=== PATIENT | female | born 1975 | race African-American/Black ===

== ENCOUNTER 2019-01-20 19:37 | Inpatient (IN) | payer MEDICAID, OTHER ==
[~2019-01-20] VITALS: Ht 157.5 cm; Wt 59.9 kg
[~2019-01-20 19:37] MED LIST: BENAZEPRIL PO; HUMALOG INSULIN; LABE200T28 PO; NIFE20CA PO; RENAGEL PO; [UNRECOGNIZED DRUG - OTHER] SUBCUT
[2019-01-20] MEDS ORDERED: SODIUM CHLORIDE 0.9% 1,000 ML IV ONE (21:00)
[2019-01-20 21:22] LABS: BASOPHILS % 1.3 % (0.0-2.0); EOSINOPHILS % 0.9 % (0.0-5.0); HEMATOCRIT. 36.4 % (36.0-48.0); HEMOGLOBIN. 11.7 g/dL (12.0-16.0); LYMPHOCYTES % 7.5 % (20.0-50.0); MEAN CORPUSCULAR HEMOGLOBIN 27.9 pg (28.0-32.0); MEAN CORPUSCULAR VOLUME 86.7 fL (81.0-99.0); MEAN PLATELET VOLUME 8.6 fl (7.4-10.4); MONOCYTES % 5.8 % (2.0-8.0); NEUTROPHILS % 84.5 % (40.0-76.0); PLATELET 354 x1000/uL (130-400); RED CELL DISTRIBUTION WIDTH 14.1 % (11.6-14.6)
[2019-01-20 21:29] LABS: CHLORIDE 103 mEq/L (98-107)
[2019-01-20] MEDS ORDERED: MORPHINE SULFATE 4 MG/ML CPJ (NOT FOR IM USE) IV ONE (23:30)
[2019-01-20] MEDS ORDERED: CLINDAMYCIN 600 MG in DEXTROSE 5% WATER 50 ML IV ONE (23:30)
[2019-01-20] MEDS ORDERED: CLINDAMYCIN 600MG PREMIX 50 ML IV SCH (23:45)
[2019-01-21] MEDS ORDERED: INSULIN LISPRO 100 UNITS/ML SUBCUT ONE (07:45)
[2019-01-21 12:00] VITALS: BP 148/70
[2019-01-21 12:30] VITALS: BP 148/70
[2019-01-21] MEDS ORDERED: ONDANSETRON HCL 4MG/2ML INJ IV PRN (13:30)
[2019-01-21] MEDS ORDERED: CLONIDINE 0.1MG TABLET PO PRN (13:30)
[2019-01-21] MEDS ORDERED: HYDROCODONE/ACETAMINOPHEN 5/325MG TABLET PO PRN (13:30)
[2019-01-21] MEDS ORDERED: DEXTROSE 50% WATER 50ML SYRINGE IV PRN (13:30)
[2019-01-21] MEDS ORDERED: ACETAMINOPHEN 325MG TABLET PO PRN (13:30)
[2019-01-21] MEDS ORDERED: SULF1TAB48 PO (14:04)
[2019-01-21] MEDS ORDERED: ERGO500013 MT (14:04)
[2019-01-21] MEDS ORDERED: TACR1CAP22 PO (14:04)
[2019-01-21] MEDS ORDERED: MULT-1146 MT (14:04)
[2019-01-21] MEDS ORDERED: ASPI-1393 MT (14:04)
[2019-01-21] MEDS ORDERED: PRED5TAB MT (14:04)
[2019-01-21] MEDS ORDERED: OMEP20CA5 MT (14:04)
[2019-01-21] MEDS ORDERED: CALC300T4 PO (14:04)
[2019-01-21] MEDS ORDERED: LANTUSUD SUBCUT (14:04)
[2019-01-21] MEDS ORDERED: DOCU-138 MT (14:04)
[2019-01-21] MEDS ORDERED: VALC450 MT (14:04)
[2019-01-21] MEDS ORDERED: MAGN400T26 MT (14:04)
[2019-01-21] MEDS: ENOXAPARIN 40MG/0.4ML SYR SUBCUT SCH (14:57)
[2019-01-21] MEDS ORDERED: CLINDAMYCIN 600 MG in DEXTROSE 5% WATER 50 ML IV SCH (15:00)
[2019-01-21 16:00] VITALS: BP 152/49
[2019-01-21] MEDS: MORPHINE SULFATE 2 MG/ML CPJ (NOT FOR IM USE) IV PRN ×2 (16:09→21:08)
[2019-01-21] MEDS: CLINDAMYCIN 600MG PREMIX 50 ML IV SCH ×2 (16:20→23:13)
[2019-01-21] MEDS ORDERED: NIFEDIPINE XL 30MG TAB PO SCH (16:30)
[2019-01-21] MEDS ORDERED: TACROLIMUS 1MG CAPSULE PO SCH (17:00)
[2019-01-21] MEDS: BLOOD SUGAR DIAGNOSTIC STRIP TEST SCH ×2 (17:20→20:42)
[2019-01-21 18:06] LABS: CLARITY URINE CLEAR (CLEAR); COLOR URINE YELLOW (YELLOW); KETONES URINE TRACE (NEGATIVE); LEUKOCYTE ESTERASE URINE NEGATIVE (NEGATIVE); NITRITE URINE NEGATIVE (NEGATIVE); OCCULT BLOOD URINE NEGATIVE (NEGATIVE); PROTEIN URINE NEGATIVE (NEGATIVE); SPECIFIC GRAVITY URINE 1.015 (1.005-1.030); UROBILINOGEN URINE 0.2 E.U./dL (0.2-1.0)
[2019-01-21 18:19] LABS: *AMPHETAMINES SCREEN URINE NEGATIVE (NEGATIVE); *BARBITURATES SCREEN URINE NEGATIVE (NEGATIVE)
[2019-01-21 18:20] LABS: *BENZODIAZEPINES SCREEN URINE NEGATIVE (NEGATIVE); *COCAINE SCREEN URINE NEGATIVE (NEGATIVE); CANNABINOID URINE SCREEN NEGATIVE (NEGATIVE); METHADONE URINE SCREEN NEGATIVE (NEGATIVE); PHENCYCLIDINE URINE SCREEN NEGATIVE (NEGATIVE)
[2019-01-21 18:27] LABS: OPIATES URINE SCREEN PRESUMTIVE POSITIVE (NEGATIVE)
[2019-01-21] MEDS: MAGNESIUM OXIDE 400MG TABLET PO SCH (18:52)
[2019-01-21] MEDS: TACROLIMUS 5MG CAPSULE PO SCH (18:52)
[2019-01-21] MEDS: DOCUSATE SODIUM 100MG CAPSULE PO SCH (18:52)
[2019-01-21] MEDS: INSULIN LISPRO 100 UNITS/ML SUBCUT SCH ×2 (19:02→21:15)
[2019-01-21 20:00] VITALS: BP 152/44
[2019-01-22] VITALS: BP 156/63
[2019-01-22] MEDS: MORPHINE SULFATE 2 MG/ML CPJ (NOT FOR IM USE) IV PRN ×3 (03:01→22:17)
[2019-01-22 04:00] VITALS: BP 178/54
[2019-01-22] MEDS: CLINDAMYCIN 600MG PREMIX 50 ML IV SCH (06:13)
[2019-01-22] MEDS: OMEPRAZOLE 20MG CAPSULE EXTENDED RELEASE PO SCH (06:14)
[2019-01-22] MEDS: BLOOD SUGAR DIAGNOSTIC STRIP TEST SCH ×4 (06:25→20:44)
[2019-01-22 07:36] LABS: BASOPHILS % 0.8 % (0.0-2.0); EOSINOPHILS % 2.2 % (0.0-5.0); HEMOGLOBIN. 10.7 g/dL (12.0-16.0); LYMPHOCYTES % 13.1 % (20.0-50.0); MEAN CORPUSCULAR HEMOGLOBIN 27.2 pg (28.0-32.0); MEAN CORPUSCULAR VOLUME 86.1 fL (81.0-99.0); MEAN PLATELET VOLUME 8.9 fl (7.4-10.4); MONOCYTES % 7.2 % (2.0-8.0); NEUTROPHILS % 76.7 % (40.0-76.0); PLATELET 288 x1000/uL (130-400); RED BLOOD CELL COUNT 3.95 mill/uL (4.2-5.4); RED CELL DISTRIBUTION WIDTH 14.1 % (11.6-14.6)
[2019-01-22 07:41] LABS: CHLORIDE 103 mEq/L (98-107)
[2019-01-22 08:00] VITALS: BP 154/46
[2019-01-22] MEDS: INSULIN LISPRO 100 UNITS/ML SUBCUT SCH ×6 (08:18→20:44)
[2019-01-22] MEDS ORDERED: SODIUM POLYSTYRENE SULFONATE 15 G/60 ML BOT PO NR (08:30)
[2019-01-22] MEDS ORDERED: ERGOCALCIFEROL 50000UNITS CAPSULE PO SCH (09:00)
[2019-01-22] MEDS: ASPIRIN 81MG TABLET PO SCH (09:47)
[2019-01-22] MEDS: NIFEDIPINE XL 30MG TAB PO SCH (09:47)
[2019-01-22] MEDS: TACROLIMUS 5MG CAPSULE PO SCH ×2 (09:48→16:42)
[2019-01-22] MEDS: MULTIVITAMINS,THER W-MINERALS TABLET PO SCH (09:49)
[2019-01-22] MEDS: MAGNESIUM OXIDE 400MG TABLET PO SCH ×2 (09:49→16:42)
[2019-01-22] MEDS: PREDNISONE 5MG TABLET PO SCH (09:49)
[2019-01-22] MEDS: CALCIUM CARBONATE 500MG TABLET CHEW PO SCH ×2 (09:49→16:43)
[2019-01-22] MEDS: DOCUSATE SODIUM 100MG CAPSULE PO SCH ×2 (09:49→16:42)
[2019-01-22] MEDS: ENOXAPARIN 40MG/0.4ML SYR SUBCUT SCH (09:50)
[2019-01-22] MEDS: VALGANCICLOVIR HYDROCHLORIDE 450MG TABLET PO SCH (09:50)
[2019-01-22] MEDS: INSULIN GLARGINE UD 100 UNITS/ML SYR SUBCUT SCH ×2 (11:00→22:07)
[2019-01-22 12:00] VITALS: BP 128/37
[2019-01-22] MEDS: LEVOFLOXACIN 750MG PREMIX 150 ML IV SCH (13:03)
[2019-01-22] MEDS ORDERED: VANCOMYCIN 1250MG in DEXTROSE 5% WATER 250ML IV SCH (14:00)
[2019-01-22 16:00] VITALS: BP 112/50
[2019-01-22] MEDS: VANCOMYCIN 750 MG PREMIX 150 ML IV SCH (22:26)
[2019-01-23] VITALS: BP 119/30
[2019-01-23] MEDS ORDERED: VANCOMYCIN 750 MG PREMIX 150 ML IV SCH (02:00)
[2019-01-23 04:00] VITALS: BP 123/46
[2019-01-23] MEDS: OMEPRAZOLE 20MG CAPSULE EXTENDED RELEASE PO SCH (06:26)
[2019-01-23] MEDS: BLOOD SUGAR DIAGNOSTIC STRIP TEST SCH ×2 (06:26→11:16)
[2019-01-23] MEDS: INSULIN LISPRO 100 UNITS/ML SUBCUT SCH ×5 (06:31→12:12)
[2019-01-23 06:32] LABS: BASOPHILS % 0.8 % (0.0-2.0); EOSINOPHILS % 2.3 % (0.0-5.0); HEMATOCRIT. 32.8 % (36.0-48.0); HEMOGLOBIN. 10.8 g/dL (12.0-16.0); LYMPHOCYTES % 13.4 % (20.0-50.0); MEAN CORPUSCULAR HEMOGLOBIN 28.1 pg (28.0-32.0); MEAN CORPUSCULAR VOLUME 84.9 fL (81.0-99.0); MEAN PLATELET VOLUME 8.6 fl (7.4-10.4); MONOCYTES % 6.5 % (2.0-8.0); PLATELET 309 x1000/uL (130-400); RED BLOOD CELL COUNT 3.87 mill/uL (4.2-5.4); RED CELL DISTRIBUTION WIDTH 13.8 % (11.6-14.6)
[2019-01-23 06:35] LABS: CHLORIDE 104 mEq/L (98-107)
[2019-01-23 08:00] VITALS: BP 148/46
[2019-01-23] MEDS: DOCUSATE SODIUM 100MG CAPSULE PO SCH (08:07)
[2019-01-23] MEDS: ASPIRIN 81MG TABLET PO SCH (08:07)
[2019-01-23] MEDS: VANCOMYCIN 750 MG PREMIX 150 ML IV SCH (08:07)
[2019-01-23] MEDS: MULTIVITAMINS,THER W-MINERALS TABLET PO SCH (08:07)
[2019-01-23] MEDS: MAGNESIUM OXIDE 400MG TABLET PO SCH (08:08)
[2019-01-23] MEDS: CALCIUM CARBONATE 500MG TABLET CHEW PO SCH (08:08)
[2019-01-23] MEDS: TACROLIMUS 5MG CAPSULE PO SCH (08:08)
[2019-01-23] MEDS: NIFEDIPINE XL 30MG TAB PO SCH (08:08)
[2019-01-23] MEDS: PREDNISONE 5MG TABLET PO SCH (08:08)
[2019-01-23] MEDS: ENOXAPARIN 40MG/0.4ML SYR SUBCUT SCH (08:08)
[2019-01-23] MEDS: INSULIN GLARGINE UD 100 UNITS/ML SYR SUBCUT SCH (09:40)
[2019-01-23] MEDS: VALGANCICLOVIR HYDROCHLORIDE 450MG TABLET PO SCH (10:33)
[2019-01-23] MEDS: LEVOFLOXACIN 750MG PREMIX 150 ML IV SCH (11:16)
[2019-01-23 12:00] VITALS: BP 122/42
[2019-01-23 13:14] VITALS: BP 122/42
[2019-01-24] MEDS ORDERED: FAMOTIDINE 20MG TABLET PO SCH (09:00)
[2019-01-24] MEDS ORDERED: LEVOFLOXACIN 250MG TABLET PO SCH (11:00)
== END 2019-01-23 16:39 | disposition home or self-care (01) | DRG 197 ==
LOC: ER 19:37 → EDBEDREQTM 23:27 → EDBEDREQSVC 23:27 → EDBEDREQ 23:27 → ENRESERV 01-21 10:48 → 6EST 01-21 12:29
PROVIDERS: ADMIT Internal Medicine; ATTEND Internal Medicine
DX: E10.52 Type 1 diabetes mellitus with diabetic peripheral angiopathy with gangrene (principal); E10.22 Type 1 diabetes mellitus with diabetic chronic kidney disease; E10.621 Type 1 diabetes mellitus with foot ulcer; M86.8X7 Other osteomyelitis, ankle and foot; E44.1 Mild protein-calorie malnutrition; L08.9 Local infection of the skin and subcutaneous tissue, unspecified; L97.509 Non-pressure chronic ulcer of other part of unspecified foot with unspecified severity; E10.65 Type 1 diabetes mellitus with hyperglycemia; E10.69 Type 1 diabetes mellitus with other specified complication; N18.6 End stage renal disease; I12.0 Hypertensive chronic kidney disease with stage 5 chronic kidney disease or end stage renal disease; S90.411A Abrasion, right great toe, initial encounter; W18.39XA Other fall on same level, initial encounter; Z79.4 Long term (current) use of insulin; Z88.0 Allergy status to penicillin; Z79.82 Long term (current) use of aspirin; Z94.0 Kidney transplant status; Z79.899 Other long term (current) drug therapy; Z68.24 Body mass index [BMI] 24.0-24.9, adult; Y93.89 Activity, other specified; Y92.89 Other specified places as the place of occurrence of the external cause; Y99.8 Other external cause status
CPT/HCPCS: 36415; 71045; 73630; 73718; 80048; 80305; 81003; 82962; 83036; 83880; 84132; 84484; 93005; 93306; 93923; 96374; 99285; J1650; J1815; J1956; J2270; J3370; J3490; J7030; J7060; J7507; J7512

== ENCOUNTER 2019-02-02 14:37 | Inpatient (IN) | payer MEDICAID, OTHER ==
[~2019-02-02] VITALS: Ht 157.5 cm; Wt 57.3 kg
[~2019-02-02 14:37] MED LIST changes: +ASPI-1393 MT; +CALC300T4 PO; +DOCU-138 MT; +ERGO500013 MT; +LANTUSUD SUBCUT; +MAGN400T26 MT; +MULT-1146 MT; +OMEP20CA5 MT; +PRED5TAB MT; +SULF1TAB48 PO; +TACR1CAP22 PO; +VALC450 MT
[2019-02-02] MEDS ORDERED: ONDANSETRON HCL 4MG/2ML INJ IV STA (15:33)
[2019-02-02] MEDS ORDERED: SODIUM CHLORIDE 0.9% 1,000 ML IV ONE (15:33)
[2019-02-02 16:11] LABS: BASOPHILS % 1.1 % (0.0-2.0); EOSINOPHILS % 1.1 % (0.0-5.0); HEMATOCRIT. 35.1 % (36.0-48.0); HEMOGLOBIN. 11.5 g/dL (12.0-16.0); LYMPHOCYTES % 9.9 % (20.0-50.0); MEAN CORPUSCULAR HEMOGLOBIN 27.6 pg (28.0-32.0); MEAN CORPUSCULAR VOLUME 84.2 fL (81.0-99.0); MEAN PLATELET VOLUME 8.9 fl (7.4-10.4); MONOCYTES % 5.6 % (2.0-8.0); NEUTROPHILS % 82.3 % (40.0-76.0); PLATELET 362 x1000/uL (130-400); RED BLOOD CELL COUNT 4.17 mill/uL (4.2-5.4); RED CELL DISTRIBUTION WIDTH 14.3 % (11.6-14.6)
[2019-02-02 16:19] LABS: CHLORIDE 100 mEq/L (98-107)
[2019-02-02 17:34] LABS: INR 1.1; PROTHROMBIN TIME 10.9 sec (9.6-11.0)
[2019-02-02 23:25] VITALS: BP 136/66
[2019-02-03 00:11] VITALS: BP 136/61
[2019-02-03] MEDS ORDERED: DIPHENHYDRAMINE 50MG/ML VIAL IV PRN (01:00)
[2019-02-03] MEDS ORDERED: ONDANSETRON HCL 4MG/2ML INJ IV PRN (01:00)
[2019-02-03] MEDS ORDERED: MORPHINE SULFATE 2 MG/ML CPJ (NOT FOR IM USE) IV PRN (01:00)
[2019-02-03] MEDS ORDERED: DEXTROSE 50% WATER 50ML SYRINGE IV PRN (01:00)
[2019-02-03] MEDS ORDERED: CLONIDINE 0.1MG TABLET PO PRN (02:00)
[2019-02-03] MEDS ORDERED: MAGN100C4 PO (02:12)
[2019-02-03] MEDS: TACROLIMUS 1MG CAPSULE PO SCH ×3 (03:47→18:43)
[2019-02-03] MEDS: SULFAMETHOXAZOLE/TRIMETHOPRIM 800/160MG TABLET PO SCH ×2 (03:48→21:15)
[2019-02-03] MEDS: PREDNISONE 5MG TABLET PO SCH ×2 (03:48→10:41)
[2019-02-03] MEDS: VALGANCICLOVIR HYDROCHLORIDE 450MG TABLET PO SCH (03:49)
[2019-02-03] MEDS: OMEPRAZOLE 20MG CAPSULE EXTENDED RELEASE PO SCH ×3 (03:49→18:42)
[2019-02-03 04:16] VITALS: BP 148/67
[2019-02-03] MEDS ORDERED: INSULIN LISPRO 100 UNITS/ML SUBCUT ONE (06:15)
[2019-02-03] MEDS: INSULIN LISPRO 100 UNITS/ML SUBCUT SCH ×4 (06:24→22:23)
[2019-02-03] MEDS: BLOOD SUGAR DIAGNOSTIC STRIP TEST SCH ×4 (06:37→21:00)
[2019-02-03 06:54] LABS: BASOPHILS % 1.3 % (0.0-2.0); EOSINOPHILS % 2.4 % (0.0-5.0); HEMATOCRIT. 30.6 % (36.0-48.0); LYMPHOCYTES % 13.4 % (20.0-50.0); MEAN CORPUSCULAR VOLUME 85.8 fL (81.0-99.0); MEAN PLATELET VOLUME 9.1 fl (7.4-10.4); NEUTROPHILS % 74.9 % (40.0-76.0); PLATELET 276 x1000/uL (130-400); RED BLOOD CELL COUNT 3.56 mill/uL (4.2-5.4); RED CELL DISTRIBUTION WIDTH 14.5 % (11.6-14.6)
[2019-02-03 07:45] LABS: CHLORIDE 97 mEq/L (98-107)
[2019-02-03 08:00] VITALS: BP 108/50
[2019-02-03] MEDS ORDERED: CALCIUM CARBONATE 500MG TABLET CHEW PO SCH (09:00)
[2019-02-03] MEDS: ASPIRIN 81MG TABLET PO SCH (10:41)
[2019-02-03] MEDS: CALCIUM CARBONATE 500MG TABLET CHEW PO SCH ×2 (10:41→18:50)
[2019-02-03 12:00] VITALS: BP 114/50
[2019-02-03] MEDS: LEVOFLOXACIN 500MG PREMIX 100 ML IV SCH (14:39)
[2019-02-03] MEDS: METOCLOPRAMIDE HCL 10MG/2ML VIAL IV SCH ×3 (14:49→23:30)
[2019-02-03 16:00] VITALS: BP 86/33
[2019-02-03] MEDS: DOXYCYCLINE HYCLATE 100MG CAPSULE PO SCH (18:42)
[2019-02-03 20:29] VITALS: BP 101/35
[2019-02-03] MEDS: INSULIN GLARGINE UD 100 UNITS/ML SYR SUBCUT SCH (22:09)
[2019-02-04] MEDS ORDERED: SODIUM CHLORIDE 0.9% 1,000 ML IV ONE
[2019-02-04 00:12] VITALS: BP 75/21
[2019-02-04 04:00] VITALS: BP 95/38
[2019-02-04 06:14] LABS: BASOPHILS % 1.1 % (0.0-2.0); EOSINOPHILS % 2.8 % (0.0-5.0); HEMOGLOBIN. 9.7 g/dL (12.0-16.0); LYMPHOCYTES % 17.6 % (20.0-50.0); MEAN CORPUSCULAR HEMOGLOBIN 28.1 pg (28.0-32.0); MEAN CORPUSCULAR VOLUME 84.3 fL (81.0-99.0); MEAN PLATELET VOLUME 8.7 fl (7.4-10.4); MONOCYTES % 6.3 % (2.0-8.0); NEUTROPHILS % 72.2 % (40.0-76.0); PLATELET 302 x1000/uL (130-400); RED BLOOD CELL COUNT 3.44 mill/uL (4.2-5.4); RED CELL DISTRIBUTION WIDTH 14.1 % (11.6-14.6)
[2019-02-04] MEDS: METOCLOPRAMIDE HCL 10MG/2ML VIAL IV SCH ×2 (06:45→11:49)
[2019-02-04] MEDS: OMEPRAZOLE 20MG CAPSULE EXTENDED RELEASE PO SCH (06:45)
[2019-02-04] MEDS: BLOOD SUGAR DIAGNOSTIC STRIP TEST SCH ×2 (06:45→11:49)
[2019-02-04] MEDS: INSULIN LISPRO 100 UNITS/ML SUBCUT SCH ×2 (07:50→11:49)
[2019-02-04 08:00] VITALS: BP 101/35
[2019-02-04] MEDS: TACROLIMUS 1MG CAPSULE PO SCH (10:10)
[2019-02-04] MEDS: VALGANCICLOVIR HYDROCHLORIDE 450MG TABLET PO SCH (10:10)
[2019-02-04] MEDS: ASPIRIN 81MG TABLET PO SCH (10:11)
[2019-02-04] MEDS: PREDNISONE 5MG TABLET PO SCH (10:11)
[2019-02-04] MEDS: CALCIUM CARBONATE 500MG TABLET CHEW PO SCH (10:11)
[2019-02-04] MEDS: DOXYCYCLINE HYCLATE 100MG CAPSULE PO SCH (10:11)
[2019-02-04] MEDS: INSULIN GLARGINE UD 100 UNITS/ML SYR SUBCUT SCH (10:21)
[2019-02-04] MEDS: LEVOFLOXACIN 500MG PREMIX 100 ML IV SCH (11:48)
[2019-02-04 15:16] VITALS: BP 102/34
== END 2019-02-04 16:32 | disposition home or self-care (01) | DRG 48 ==
LOC: ER 16:34 → 6WST 20:22 → EDBEDREQTM 20:25 → EDBEDREQ 20:25 → ENRESERV 22:28
PROVIDERS: ADMIT Internal Medicine; ATTEND Internal Medicine
DX: E11.43 Type 2 diabetes mellitus with diabetic autonomic (poly)neuropathy (principal); E11.22 Type 2 diabetes mellitus with diabetic chronic kidney disease; E11.52 Type 2 diabetes mellitus with diabetic peripheral angiopathy with gangrene; I12.0 Hypertensive chronic kidney disease with stage 5 chronic kidney disease or end stage renal disease; D64.9 Anemia, unspecified; K31.84 Gastroparesis; N18.6 End stage renal disease; Z94.0 Kidney transplant status; Z99.2 Dependence on renal dialysis; Z89.411 Acquired absence of right great toe; Z88.0 Allergy status to penicillin; Z79.82 Long term (current) use of aspirin; Z79.899 Other long term (current) drug therapy
CPT/HCPCS: 36415; 71045; 73630; 80048; 82962; 83605; 84145; 84484; 85651; 93005; 96374; 99285; J1200; J1815; J1956; J2270; J2405; J2765; J7030; J7507; J7512

== ENCOUNTER 2020-05-03 15:19 | Emergency (ER) | payer MEDICAID ==
[~2020-05-03] VITALS: Ht 157.5 cm; Wt 76.0 kg
[~2020-05-03 15:19] MED LIST changes: -ASPI-1393 MT; +ASPI-1497 MT; -BENAZEPRIL PO; -DOCU-138 MT; +MAGN100C4 PO; -MAGN400T26 MT; +OMEP20CA14 MT; -OMEP20CA5 MT
[2020-05-03 15:28] VITALS: BP 145/53
== END 2020-05-03 20:32 | disposition left against medical advice (07) ==
LOC: ER 15:19
DX: M79.672 Pain in left foot (principal); Z53.21 Procedure and treatment not carried out due to patient leaving prior to being seen by health care provider
CPT/HCPCS: 93005

== ENCOUNTER 2020-05-04 11:24 | Inpatient (IN) | payer MEDICAID ==
[~2020-05-04] VITALS: Ht 157.5 cm; Wt 77.1 kg
[2020-05-04] MEDS ORDERED: VANCOMYCIN 1 G PREMIX 200 ML IV ONE (13:15)
[2020-05-04] MEDS ORDERED: PIPERACILLIN/TAZ 3.375G PREMIX 50 ML IV ONE (13:15)
[2020-05-04 14:24] LABS: BASOPHILS % 1.5 % (0.0-2.0); EOSINOPHILS % 0.9 % (0.0-5.0); HEMATOCRIT. 38.7 % (36.0-48.0); HEMOGLOBIN. 12.8 g/dL (12.0-16.0); LYMPHOCYTES % 15.1 % (20.0-50.0); MEAN CORPUSCULAR HEMOGLOBIN 30.9 pg (28.0-32.0); MEAN CORPUSCULAR VOLUME 93.7 fL (81.0-99.0); MEAN PLATELET VOLUME 8.5 fl (7.4-10.4); NEUTROPHILS % 81.5 % (40.0-76.0); PLATELET 163 x1000/uL (130-400); RED BLOOD CELL COUNT 4.13 mill/uL (4.2-5.4); RED CELL DISTRIBUTION WIDTH 15.5 % (11.6-14.6)
[2020-05-04 14:35] LABS: CHLORIDE 111 mEq/L (98-107)
[2020-05-04 14:41] LABS: PROTHROMBIN TIME 10.5 sec (9.6-11.0)
[2020-05-04 14:54] LABS: CLARITY URINE CLEAR (CLEAR); COLOR URINE YELLOW (YELLOW); KETONES URINE NEGATIVE (NEGATIVE); LEUKOCYTE ESTERASE URINE NEGATIVE (NEGATIVE); NITRITE URINE NEGATIVE (NEGATIVE); OCCULT BLOOD URINE NEGATIVE (NEGATIVE); PROTEIN URINE NEGATIVE (NEGATIVE); SPECIFIC GRAVITY URINE 1.024 (1.005-1.030); UROBILINOGEN URINE 0.2 E.U./dL (0.2-1.0)
[2020-05-04] MEDS ORDERED: CLINDAMYCIN 600 MG in DEXTROSE 5% WATER 50 ML IV ONE (16:45)
[2020-05-04] MEDS ORDERED: DIPHENHYDRAMINE 50MG/ML VIAL IV PRN (18:30)
[2020-05-04] MEDS ORDERED: ACETAMINOPHEN 325MG TABLET PO PRN (18:30)
[2020-05-04] MEDS ORDERED: IPRATROPIUM/ALBUTEROL 0.5-3(2.5)MG/3ML NEB HHN PRN (18:30)
[2020-05-04] MEDS ORDERED: ONDANSETRON HCL 4MG/2ML INJ IV PRN (18:30)
[2020-05-04] MEDS ORDERED: CLONIDINE 0.1MG TABLET PO PRN (18:30)
[2020-05-04] MEDS ORDERED: MORPHINE SULFATE 2 MG/ML CPJ (NOT FOR IM USE) IV PRN (18:30)
[2020-05-04] MEDS ORDERED: PIPERACILLIN/TAZ 3.375G PREMIX 50 ML IV SCH (18:30)
[2020-05-04] MEDS: LEVOFLOXACIN 500MG PREMIX 100 ML IV SCH ×2 (23:06→23:21)
[2020-05-05] VITALS (8 sets, daily range): BP systolic 78–143; BP diastolic 35–95
[2020-05-05] MEDS: VANCOMYCIN 750 MG PREMIX 150 ML IV SCH ×4 (00:20→23:36)
[2020-05-05 06:01] LABS: CHLORIDE 108 mEq/L (98-107)
[2020-05-05 06:03] LABS: BASOPHILS % 1.3 % (0.0-2.0); EOSINOPHILS % 1.7 % (0.0-5.0); HEMATOCRIT. 39.3 % (36.0-48.0); LYMPHOCYTES % 24.1 % (20.0-50.0); MEAN CORPUSCULAR VOLUME 93.8 fL (81.0-99.0); MEAN PLATELET VOLUME 8.4 fl (7.4-10.4); MONOCYTES % 1.3 % (2.0-8.0); NEUTROPHILS % 71.6 % (40.0-76.0); PLATELET 160 x1000/uL (130-400); RED BLOOD CELL COUNT 4.19 mill/uL (4.2-5.4)
[2020-05-05 06:08] LABS: LDL CHOLESTEROL 50 mg/dL (5-100)
[2020-05-05 06:11] LABS: HDL CHOLESTEROL 101 mg/dL (40-59)
[2020-05-05] MEDS ORDERED: TACR0.5C4 MT (12:02)
[2020-05-05] MEDS ORDERED: DOCU-138 MT (12:09)
[2020-05-05] MEDS ORDERED: ATOR10TA69 PO (12:09)
[2020-05-05] MEDS ORDERED: IOHEXOL-350 100 ML BOTTLE ONE (14:05)
[2020-05-05] MEDS ORDERED: CELL2 PO (14:20)
[2020-05-05] MEDS ORDERED: TACROLIMUS 1MG CAPSULE PO SCH ×2 (16:00→23:30)
[2020-05-05] MEDS ORDERED: VALGANCICLOVIR HYDROCHLORIDE 450MG TABLET PO SCH (16:00)
[2020-05-05] MEDS: PREDNISONE 5MG TABLET PO SCH (16:21)
[2020-05-05] MEDS ORDERED: DEXTROSE 50% WATER 50ML SYRINGE IV PRN (16:45)
[2020-05-05] MEDS: DOCUSATE SODIUM 100MG CAPSULE PO SCH (16:51)
[2020-05-05] MEDS: BLOOD SUGAR DIAGNOSTIC STRIP TEST SCH ×2 (17:11→21:20)
[2020-05-05] MEDS: INSULIN LISPRO 100 UNITS/ML SUBCUT SCH ×2 (17:11→21:32)
[2020-05-05] MEDS ORDERED: MYCOPHENOLATE MOFETIL 250MG CAPSULE PO SCH (17:30)
[2020-05-05] MEDS ORDERED: INSULIN GLARGINE UD 100 UNITS/ML SYR SUBCUT SCH (21:00)
[2020-05-05 23:07] LABS: UCG SCREEN NEGATIVE
[2020-05-05] MEDS ORDERED: ATORVASTATIN CALCIUM 10MG TABLET PO SCH (23:30)
[2020-05-06] MEDS: VALGANCICLOVIR HYDROCHLORIDE 450MG TABLET PO SCH ×2 (00:03→11:09)
[2020-05-06 01:31] VITALS: BP 101/42
[2020-05-06 03:31] VITALS: BP 122/50
[2020-05-06 05:31] VITALS: BP 138/39
[2020-05-06] MEDS: BLOOD SUGAR DIAGNOSTIC STRIP TEST SCH (06:39)
[2020-05-06] MEDS ORDERED: OMEPRAZOLE 20MG CAPSULE EXTENDED RELEASE PO SCH (06:50)
[2020-05-06 07:13] LABS: CHLORIDE 106 mEq/L (98-107)
[2020-05-06 08:00] VITALS: BP 137/34
[2020-05-06] MEDS: DOCUSATE SODIUM 100MG CAPSULE PO SCH (08:37)
[2020-05-06] MEDS: PREDNISONE 5MG TABLET PO SCH (08:37)
[2020-05-06] MEDS: INSULIN LISPRO 100 UNITS/ML SUBCUT SCH (08:38)
[2020-05-06] MEDS ORDERED: MULTIVITAMINS,THER W-MINERALS TABLET PO SCH (09:00)
[2020-05-06] MEDS ORDERED: MYCOPHENOLATE MOFETIL 250MG CAPSULE PO SCH (09:00)
[2020-05-06] MEDS ORDERED: ATORVASTATIN CALCIUM 10MG TABLET PO SCH (09:00)
[2020-05-06] MEDS ORDERED: ASPIRIN 81MG EC TABLET PO SCH (09:00)
[2020-05-06] MEDS ORDERED: TACROLIMUS 1MG CAPSULE PO SCH (09:00)
[2020-05-06] MEDS: VANCOMYCIN 750 MG PREMIX 150 ML IV SCH (10:02)
[2020-05-06] MEDS ORDERED: CLOP75TA33 MT (10:20)
[2020-05-06] MEDS ORDERED: LANTUSUD SUBCUT (10:20)
[2020-05-06 11:16] VITALS: BP 127/72
[2020-05-06 12:00] VITALS: BP 150/66
== END 2020-05-06 12:45 | disposition home or self-care (01) | DRG 197 ==
LOC: ER 11:24 → EDBEDREQSVC 14:01 → EDBEDREQ 14:01 → EDBEDREQTM 14:01 → 3WST 05-05 04:48 → EDBEDREQ 05-05 04:51 → EDBEDREQSVC 05-05 04:51 → ENRESERV 05-05 10:22 → 6EST 05-06 08:52
PROVIDERS: ADMIT Internal Medicine; ATTEND Internal Medicine
DX: E11.52 Type 2 diabetes mellitus with diabetic peripheral angiopathy with gangrene (principal); Z94.0 Kidney transplant status; I10 Essential (primary) hypertension; E78.5 Hyperlipidemia, unspecified; K21.9 Gastro-esophageal reflux disease without esophagitis; Z20.828 Contact with and (suspected) exposure to other viral communicable diseases; I96 Gangrene, not elsewhere classified; Z89.421 Acquired absence of other right toe(s); Z79.82 Long term (current) use of aspirin; Z79.4 Long term (current) use of insulin; Z79.899 Other long term (current) drug therapy; R74.01 Elevation of levels of liver transaminase levels
CPT/HCPCS: 36415; 71045; 73660; 75635; 80048; 80053; 80061; 80202; 81003; 81025; 82962; 83036; 83605; 84145; 84443; 85025; 86850; 86900; 87426; 93005; 93923; 93970; 99285; J1815; J1956; J2543; J3370; J3490; J7060; J7507; J7512; J7517; Q9967

== ENCOUNTER 2021-02-23 13:53 | Inpatient (IN) | payer MEDICAID ==
[~2021-02-23] VITALS: Ht 157.5 cm; Wt 77.1 kg
[~2021-02-23 13:53] MED LIST changes: +ATOR10TA69 PO; -CALC300T4 PO; +CELL2 PO; +CLOP75TA33 MT; +DOCU-138 MT; -ERGO500013 MT; -LABE200T28 PO; -MAGN100C4 PO; -NIFE20CA PO; -RENAGEL PO; -[UNRECOGNIZED DRUG - OTHER] SUBCUT
[2021-02-23] MEDS ORDERED: VANCOMYCIN 1 G PREMIX 200 ML IV ONE (14:30)
[2021-02-23] MEDS ORDERED: CLINDAMYCIN 600 MG in DEXTROSE 5% WATER 50 ML IV ONE (14:30)
[2021-02-23] MEDS ORDERED: CLINDAMYCIN 600MG PREMIX 50 ML IV NR (14:45)
[2021-02-23 15:05] LABS: BASOPHILS % 0.9 % (0.0-2.0); EOSINOPHILS % 2.3 % (0.0-5.0); HEMATOCRIT. 39.5 % (36.0-48.0); HEMOGLOBIN. 13.3 g/dL (12.0-16.0); LYMPHOCYTES % 22.4 % (20.0-50.0); MEAN CORPUSCULAR HEMOGLOBIN 30.5 pg (28.0-32.0); MEAN PLATELET VOLUME 8.4 fl (7.4-10.4); MONOCYTES % 11.9 % (2.0-8.0); NEUTROPHILS % 62.5 % (40.0-76.0); PLATELET 221 x1000/uL (130-400); RED BLOOD CELL COUNT 4.35 mill/uL (4.2-5.4); RED CELL DISTRIBUTION WIDTH 14.3 % (11.6-14.6)
[2021-02-23 15:12] LABS: CHLORIDE 107 mEq/L (98-107)
[2021-02-24] VITALS: BP 136/46
[2021-02-24] MEDS ORDERED: CLONIDINE 0.1MG TABLET PO PRN
[2021-02-24] MEDS ORDERED: DEXTROSE 50% WATER 50ML SYRINGE IV PRN
[2021-02-24] MEDS ORDERED: ONDANSETRON HCL 4MG/2ML INJ IV PRN
[2021-02-24 01:02] VITALS: BP 148/156
[2021-02-24] MEDS ORDERED: INSULIN GLARGINE UD 100 UNITS/ML SYR SUBCUT SCH (02:00)
[2021-02-24] MEDS: HYDROCODONE/ACETAMINOPHEN 5/325MG TABLET PO PRN ×2 (02:46→22:08)
[2021-02-24 04:00] VITALS: BP 147/49
[2021-02-24] MEDS ORDERED: VANCOMYCIN 750 MG PREMIX 150 ML IV SCH (04:00)
[2021-02-24] MEDS ORDERED: HEPARIN 5000 UNITS/ML VIAL SUBCUT SCH (06:00)
[2021-02-24] MEDS ORDERED: PIPERACILLIN/TAZOBACTAM 3.375 G in DEXTROSE 5% WATER 50 ML IV SCH (06:00)
[2021-02-24] MEDS: BLOOD SUGAR DIAGNOSTIC STRIP TEST SCH ×4 (07:20→21:58)
[2021-02-24 07:34] LABS: BASOPHILS % 0.6 % (0.0-2.0); EOSINOPHILS % 2.1 % (0.0-5.0); HEMATOCRIT. 40.8 % (36.0-48.0); HEMOGLOBIN. 13.2 g/dL (12.0-16.0); LYMPHOCYTES % 19.5 % (20.0-50.0); MEAN CORPUSCULAR VOLUME 92.8 fL (81.0-99.0); MEAN PLATELET VOLUME 8.9 fl (7.4-10.4); MONOCYTES % 10.7 % (2.0-8.0); NEUTROPHILS % 67.1 % (40.0-76.0); PLATELET 200 x1000/uL (130-400); RED CELL DISTRIBUTION WIDTH 13.9 % (11.6-14.6)
[2021-02-24 07:47] LABS: CHLORIDE 105 mEq/L (98-107)
[2021-02-24 08:00] VITALS: BP 133/40
[2021-02-24] MEDS: INSULIN LISPRO 100 UNITS/ML SUBCUT SCH ×4 (09:31→22:09)
[2021-02-24] MEDS: INSULIN GLARGINE UD 100 UNITS/ML SYR SUBCUT SCH ×2 (10:35→22:09)
[2021-02-24] MEDS ORDERED: VALGANCICLOVIR HYDROCHLORIDE 450MG TABLET PO SCH (11:15)
[2021-02-24 12:00] VITALS: BP 94/40
[2021-02-24] MEDS: PREDNISONE 5MG TABLET PO SCH (14:14)
[2021-02-24] MEDS: OMEPRAZOLE 20MG CAPSULE EXTENDED RELEASE PO SCH (14:14)
[2021-02-24 16:00] VITALS: BP 106/38
[2021-02-24] MEDS ORDERED: TACROLIMUS 1MG CAPSULE PO SCH (17:00)
[2021-02-24] MEDS: TACROLIMUS 1MG CAPSULE PO SCH (17:29)
[2021-02-24] MEDS: MYCOPHENOLATE MOFETIL 250MG CAPSULE PO SCH (17:29)
[2021-02-24] MEDS ORDERED: VANCOMYCIN 1 G PREMIX 200 ML IV SCH (18:00)
[2021-02-24] MEDS: ENOXAPARIN 40MG/0.4ML SYR SUBCUT SCH (20:57)
[2021-02-24] MEDS ORDERED: ENOXAPARIN 30MG/0.3ML SYR SUBCUT SCH (21:00)
[2021-02-24] MEDS ORDERED: NALOXONE HCL 0.4MG/ML VIAL IV PRN (21:15)
[2021-02-25] VITALS: BP 108/36
[2021-02-25 04:00] VITALS: BP 110/45
[2021-02-25] MEDS: INSULIN LISPRO 100 UNITS/ML SUBCUT SCH ×4 (07:50→21:44)
[2021-02-25] MEDS: BLOOD SUGAR DIAGNOSTIC STRIP TEST SCH ×4 (07:56→21:20)
[2021-02-25 08:00] VITALS: BP 118/46
[2021-02-25 08:12] LABS: CHLORIDE 107 mEq/L (98-107)
[2021-02-25] MEDS: TACROLIMUS 1MG CAPSULE PO SCH ×2 (09:10→17:44)
[2021-02-25] MEDS: OMEPRAZOLE 20MG CAPSULE EXTENDED RELEASE PO SCH (09:10)
[2021-02-25] MEDS: MYCOPHENOLATE MOFETIL 250MG CAPSULE PO SCH ×2 (09:10→17:44)
[2021-02-25] MEDS: PREDNISONE 5MG TABLET PO SCH (09:11)
[2021-02-25] MEDS: INSULIN GLARGINE UD 100 UNITS/ML SYR SUBCUT SCH ×2 (09:24→21:46)
[2021-02-25 10:32] LABS: UCG SCREEN NEGATIVE
[2021-02-25 12:00] VITALS: BP 130/92
[2021-02-25] MEDS ORDERED: IOHEXOL-350 100 ML BOTTLE ONE (12:09)
[2021-02-25] MEDS: LEVOFLOXACIN 250MG TABLET PO SCH (13:07)
[2021-02-25] MEDS: HYDROCODONE/ACETAMINOPHEN 5/325MG TABLET PO PRN ×2 (13:28→21:34)
[2021-02-25 16:00] VITALS: BP 136/47
[2021-02-25] MEDS: VANCOMYCIN 750 MG PREMIX 150 ML IV SCH (17:44)
[2021-02-25 20:00] VITALS: BP 127/67
[2021-02-25] MEDS: ENOXAPARIN 40MG/0.4ML SYR SUBCUT SCH (21:34)
[2021-02-26] VITALS: BP 117/61
[2021-02-26 04:00] VITALS: BP 121/40
[2021-02-26] MEDS: HYDROCODONE/ACETAMINOPHEN 5/325MG TABLET PO PRN ×2 (05:56→21:12)
[2021-02-26] MEDS: BLOOD SUGAR DIAGNOSTIC STRIP TEST SCH ×4 (06:26→20:33)
[2021-02-26] MEDS: INSULIN LISPRO 100 UNITS/ML SUBCUT SCH ×4 (06:26→20:54)
[2021-02-26 08:00] VITALS: BP 103/37
[2021-02-26] MEDS: PREDNISONE 5MG TABLET PO SCH (09:47)
[2021-02-26] MEDS: OMEPRAZOLE 20MG CAPSULE EXTENDED RELEASE PO SCH (09:47)
[2021-02-26] MEDS: MYCOPHENOLATE MOFETIL 250MG CAPSULE PO SCH ×2 (09:47→18:37)
[2021-02-26] MEDS: TACROLIMUS 1MG CAPSULE PO SCH ×2 (09:48→18:37)
[2021-02-26] MEDS: LEVOFLOXACIN 250MG TABLET PO SCH (09:48)
[2021-02-26] MEDS: VANCOMYCIN 750 MG PREMIX 150 ML IV SCH (09:48)
[2021-02-26] MEDS: INSULIN GLARGINE UD 100 UNITS/ML SYR SUBCUT SCH ×2 (09:56→21:02)
[2021-02-26 12:00] VITALS: BP 109/36
[2021-02-26 16:00] VITALS: BP 117/53
[2021-02-26 20:00] VITALS: BP 107/48
[2021-02-26] MEDS: FAMOTIDINE 20MG TABLET PO SCH (20:33)
[2021-02-26] MEDS: AZTREONAM 2 GM in DEXT 5% WATER 100 ML IV SCH (20:33)
[2021-02-26] MEDS: ENOXAPARIN 40MG/0.4ML SYR SUBCUT SCH (21:00)
[2021-02-27] VITALS: BP 112/46
[2021-02-27 04:00] VITALS: BP 125/47
[2021-02-27] MEDS: AZTREONAM 2 GM in DEXT 5% WATER 100 ML IV SCH ×3 (04:03→21:46)
[2021-02-27] MEDS: HYDROCODONE/ACETAMINOPHEN 5/325MG TABLET PO PRN (04:04)
[2021-02-27] MEDS: VANCOMYCIN 750 MG PREMIX 150 ML IV SCH (05:13)
[2021-02-27] MEDS ORDERED: SODIUM CHLORIDE 0.9% 1,000 ML IV SCH (06:00)
[2021-02-27] MEDS: BLOOD SUGAR DIAGNOSTIC STRIP TEST SCH ×4 (06:55→21:46)
[2021-02-27 08:00] VITALS: BP 110/40
[2021-02-27] MEDS: PREDNISONE 5MG TABLET PO SCH (09:00)
[2021-02-27] MEDS: MYCOPHENOLATE MOFETIL 250MG CAPSULE PO SCH ×2 (09:00→17:38)
[2021-02-27] MEDS: FAMOTIDINE 20MG TABLET PO SCH ×2 (09:00→21:47)
[2021-02-27] MEDS: TACROLIMUS 1MG CAPSULE PO SCH ×2 (09:00→17:38)
[2021-02-27] MEDS: INSULIN LISPRO 100 UNITS/ML SUBCUT SCH ×4 (09:40→21:00)
[2021-02-27] MEDS: INSULIN GLARGINE UD 100 UNITS/ML SYR SUBCUT SCH ×2 (10:00→22:00)
[2021-02-27] MEDS ORDERED: IODIXANOL 320MG/ML 100 ML BOTTLE IV ONE (11:54)
[2021-02-27] MEDS ORDERED: LIDOCAINE HCL 1% 20ML VIAL (Pyxis) INJ ONE (11:54)
[2021-02-27 12:00] VITALS: BP 138/36
[2021-02-27] MEDS ORDERED: MIDAZOLAM HCL 2 MG/2 ML VIAL ONE (12:12)
[2021-02-27] MEDS ORDERED: FENTANYL CITRATE/PF 50MCG/ML 2ML VIAL ONE (12:12)
[2021-02-27] MEDS ORDERED: MIDAZOLAM HCL 5 MG/5 ML VIAL ONE (15:07)
[2021-02-27] MEDS ORDERED: FENTANYL CITRATE/PF 50MCG/ML 5ML VIAL ONE (15:07)
[2021-02-27 16:00] VITALS: BP 122/30
[2021-02-27] MEDS: LEVOFLOXACIN 250MG TABLET PO SCH (17:38)
[2021-02-27 20:00] VITALS: BP 125/50
[2021-02-27] MEDS: ENOXAPARIN 40MG/0.4ML SYR SUBCUT SCH (21:46)
[2021-02-28] VITALS: BP 104/54
[2021-02-28] MEDS: VANCOMYCIN 750 MG PREMIX 150 ML IV SCH (00:26)
[2021-02-28] MEDS: MORPHINE SULFATE 2 MG/ML CPJ (NOT FOR IM USE) IV PRN ×2 (00:28→12:37)
[2021-02-28 04:00] VITALS: BP 153/53
[2021-02-28] MEDS: AZTREONAM 2 GM in DEXT 5% WATER 100 ML IV SCH ×3 (04:39→21:30)
[2021-02-28 06:55] LABS: CHLORIDE 104 mEq/L (98-107)
[2021-02-28] MEDS: BLOOD SUGAR DIAGNOSTIC STRIP TEST SCH ×4 (07:00→21:34)
[2021-02-28 07:10] LABS: BASOPHILS % 0.3 % (0.0-2.0); HEMATOCRIT. 41.7 % (36.0-48.0); HEMOGLOBIN. 13.8 g/dL (12.0-16.0); LYMPHOCYTES % 22.8 % (20.0-50.0); MEAN CORPUSCULAR HEMOGLOBIN 30.5 pg (28.0-32.0); MEAN CORPUSCULAR VOLUME 92.4 fL (81.0-99.0); MEAN PLATELET VOLUME 8.6 fl (7.4-10.4); MONOCYTES % 11.5 % (2.0-8.0); NEUTROPHILS % 63.4 % (40.0-76.0); PLATELET 181 x1000/uL (130-400); RED BLOOD CELL COUNT 4.51 mill/uL (4.2-5.4)
[2021-02-28] MEDS: PREDNISONE 5MG TABLET PO SCH (09:19)
[2021-02-28] MEDS: MYCOPHENOLATE MOFETIL 250MG CAPSULE PO SCH ×2 (09:19→17:35)
[2021-02-28] MEDS: NITROGLYCERIN 0.4MG/HR PATCH TOP SCH (09:19)
[2021-02-28] MEDS: TACROLIMUS 1MG CAPSULE PO SCH ×2 (09:19→17:35)
[2021-02-28] MEDS: FAMOTIDINE 20MG TABLET PO SCH ×2 (09:19→21:30)
[2021-02-28] MEDS: INSULIN LISPRO 100 UNITS/ML SUBCUT SCH ×4 (09:31→21:38)
[2021-02-28] MEDS: INSULIN GLARGINE UD 100 UNITS/ML SYR SUBCUT SCH ×2 (11:06→21:39)
[2021-02-28 12:00] VITALS: BP 116/40
[2021-02-28 16:00] VITALS: BP 108/40
[2021-02-28 20:00] VITALS: BP 97/34
[2021-02-28] MEDS: ENOXAPARIN 40MG/0.4ML SYR SUBCUT SCH (21:34)
[2021-02-28] MEDS ORDERED: VANCOMYCIN 750 MG PREMIX 150 ML IV SCH (22:00)
[2021-03-01] VITALS: BP 112/39
[2021-03-01] MEDS: MORPHINE SULFATE 2 MG/ML CPJ (NOT FOR IM USE) IV PRN ×3 (00:31→22:32)
[2021-03-01 04:00] VITALS: BP 122/31
[2021-03-01] MEDS: AZTREONAM 2 GM in DEXT 5% WATER 100 ML IV SCH ×3 (05:23→20:40)
[2021-03-01] MEDS: BLOOD SUGAR DIAGNOSTIC STRIP TEST SCH ×4 (07:20→20:40)
[2021-03-01] MEDS ORDERED: LIDOCAINE HCL 1% 20ML VIAL (Pyxis) INJ ONE (07:40)
[2021-03-01 08:00] VITALS: BP 98/46
[2021-03-01] MEDS: FAMOTIDINE 20MG TABLET PO SCH ×2 (08:52→20:40)
[2021-03-01] MEDS: TACROLIMUS 1MG CAPSULE PO SCH ×2 (08:52→17:27)
[2021-03-01] MEDS: PREDNISONE 5MG TABLET PO SCH (08:52)
[2021-03-01] MEDS: MYCOPHENOLATE MOFETIL 250MG CAPSULE PO SCH ×2 (08:52→17:27)
[2021-03-01] MEDS: INSULIN LISPRO 100 UNITS/ML SUBCUT SCH ×4 (08:55→22:39)
[2021-03-01] MEDS: NITROGLYCERIN 0.4MG/HR PATCH TOP SCH (08:58)
[2021-03-01] MEDS: INSULIN GLARGINE UD 100 UNITS/ML SYR SUBCUT SCH ×2 (11:16→23:29)
[2021-03-01 12:00] VITALS: BP 108/52
[2021-03-01 12:06] LABS: BASOPHILS % 0.6 % (0.0-2.0); EOSINOPHILS % 2.4 % (0.0-5.0); HEMATOCRIT. 36.6 % (36.0-48.0); HEMOGLOBIN. 12.2 g/dL (12.0-16.0); LYMPHOCYTES % 23.6 % (20.0-50.0); MEAN CORPUSCULAR HEMOGLOBIN 30.4 pg (28.0-32.0); MEAN CORPUSCULAR VOLUME 90.9 fL (81.0-99.0); MEAN PLATELET VOLUME 8.8 fl (7.4-10.4); MONOCYTES % 13.1 % (2.0-8.0); NEUTROPHILS % 60.3 % (40.0-76.0); PLATELET 178 x1000/uL (130-400); RED BLOOD CELL COUNT 4.02 mill/uL (4.2-5.4); RED CELL DISTRIBUTION WIDTH 13.6 % (11.6-14.6)
[2021-03-01 16:00] VITALS: BP 107/61
[2021-03-01 20:00] VITALS: BP 159/68
[2021-03-01] MEDS: ENOXAPARIN 40MG/0.4ML SYR SUBCUT SCH (20:41)
[2021-03-01] MEDS ORDERED: VANCOMYCIN 750 MG PREMIX 150 ML IV SCH (22:00)
[2021-03-02] VITALS: BP 150/61
[2021-03-02] MEDS: AZTREONAM 2 GM in DEXT 5% WATER 100 ML IV SCH ×2 (03:52→13:09)
[2021-03-02 04:00] VITALS: BP 110/40
[2021-03-02] MEDS: MORPHINE SULFATE 2 MG/ML CPJ (NOT FOR IM USE) IV PRN ×2 (06:35→13:09)
[2021-03-02] MEDS: BLOOD SUGAR DIAGNOSTIC STRIP TEST SCH ×2 (06:54→12:50)
[2021-03-02 08:00] VITALS: BP 115/48
[2021-03-02] MEDS: INSULIN LISPRO 100 UNITS/ML SUBCUT SCH ×2 (08:29→12:50)
[2021-03-02] MEDS: PREDNISONE 5MG TABLET PO SCH (09:12)
[2021-03-02] MEDS: FAMOTIDINE 20MG TABLET PO SCH (09:12)
[2021-03-02] MEDS: MYCOPHENOLATE MOFETIL 250MG CAPSULE PO SCH (09:12)
[2021-03-02] MEDS: NITROGLYCERIN 0.4MG/HR PATCH TOP SCH (09:13)
[2021-03-02] MEDS: TACROLIMUS 1MG CAPSULE PO SCH (10:59)
[2021-03-02] MEDS: INSULIN GLARGINE UD 100 UNITS/ML SYR SUBCUT SCH (11:14)
[2021-03-02 12:00] VITALS: BP 127/51
[2021-03-02] MEDS ORDERED: FENTANYL CITRATE/PF 50MCG/ML 5ML VIAL ONE (15:20)
[2021-03-02] MEDS ORDERED: MIDAZOLAM HCL 5 MG/5 ML VIAL ONE (15:20)
[2021-03-02 16:00] VITALS: BP 120/53
[2021-03-02 17:43] VITALS: BP 120/53
== END 2021-03-02 18:25 | disposition home health service (06) | DRG 344 ==
LOC: ER 13:53 → 6EST 16:20 → EDBEDREQ 16:23 → EDBEDREQTM 16:23 → ENRESERV 21:00
PROVIDERS: ADMIT Internal Medicine; ATTEND Internal Medicine
PROC: B41G1ZZ Fluoroscopy of Left Lower Extremity Arteries using Low Osmolar Contrast (ICD-10-PCS; principal; 2021-02-27)
PROC: 05HY33Z Insertion of Infusion Device into Upper Vein, Percutaneous Approach (ICD-10-PCS; 2021-03-01)
PROC: B54MZZA Ultrasonography of Right Upper Extremity Veins, Guidance (ICD-10-PCS; 2021-03-01)
PROC: B51MZZA Fluoroscopy of Right Upper Extremity Veins, Guidance (ICD-10-PCS; 2021-03-01)
DX: E11.621 Type 2 diabetes mellitus with foot ulcer (principal); M86.9 Osteomyelitis, unspecified; E11.610 Type 2 diabetes mellitus with diabetic neuropathic arthropathy; I70.262 Atherosclerosis of native arteries of extremities with gangrene, left leg; E11.21 Type 2 diabetes mellitus with diabetic nephropathy; L97.429 Non-pressure chronic ulcer of left heel and midfoot with unspecified severity; B95.1 Streptococcus, group B, as the cause of diseases classified elsewhere; M84.675A Pathological fracture in other disease, left foot, initial encounter for fracture; B95.2 Enterococcus as the cause of diseases classified elsewhere; B96.20 Unspecified Escherichia coli [E. coli] as the cause of diseases classified elsewhere; E78.5 Hyperlipidemia, unspecified; E87.5 Hyperkalemia; E66.01 Morbid (severe) obesity due to excess calories; K21.9 Gastro-esophageal reflux disease without esophagitis; Z20.822 Contact with and (suspected) exposure to COVID-19; Z16.29 Resistance to other single specified antibiotic; E11.65 Type 2 diabetes mellitus with hyperglycemia; Z88.0 Allergy status to penicillin; Z79.4 Long term (current) use of insulin; Z68.31 Body mass index [BMI] 31.0-31.9, adult; Z94.0 Kidney transplant status; Z98.891 History of uterine scar from previous surgery; Z79.899 Other long term (current) drug therapy; Z79.52 Long term (current) use of systemic steroids; Z79.82 Long term (current) use of aspirin; Z87.440 Personal history of urinary (tract) infections; Z89.421 Acquired absence of other right toe(s); E11.69 Type 2 diabetes mellitus with other specified complication
CPT/HCPCS: 36246; 36415; 36573; 73630; 73721; 75635; 75710; 80048; 80053; 80202; 81025; 82962; 83036; 84132; 84145; 85025; 85651; 86140; 87070; 87077; 87186; 87426; 93923; 97162; 99285; C1725; C1760; C1769; C1893; J1644; J1650; J1815; J2250; J2270; J3010; J3370; J3490; J7040; J7060; J7507; J7512; J7517; Q9967

== ENCOUNTER 2021-05-11 11:12 | Inpatient (IN) | payer MEDICAID ==
[~2021-05-11] VITALS: Ht 157.5 cm; Wt 163.3 kg
[2021-05-11] MEDS ORDERED: LIDOCAINE HCL 1% 10 MG/ML 10ML VIAL ONE ×2 (12:28→15:37)
[2021-05-11] MEDS ORDERED: BUPIVACAINE HCL/PF 0.5% (5MG/ML) 10ML ONE (12:28)
[2021-05-11 12:29] LABS: BASOPHILS % 0.7 % (0.0-2.0); EOSINOPHILS % 3.1 % (0.0-5.0); HEMATOCRIT. 38.4 % (36.0-48.0); HEMOGLOBIN. 12.4 g/dL (12.0-16.0); LYMPHOCYTES % 33.4 % (20.0-50.0); MEAN CORPUSCULAR HEMOGLOBIN 29.7 pg (28.0-32.0); MEAN CORPUSCULAR VOLUME 91.9 fL (81.0-99.0); MEAN PLATELET VOLUME 8.7 fl (7.4-10.4); MONOCYTES % 9.3 % (2.0-8.0); NEUTROPHILS % 53.5 % (40.0-76.0); PLATELET 217 x1000/uL (130-400); RED BLOOD CELL COUNT 4.18 mill/uL (4.2-5.4); RED CELL DISTRIBUTION WIDTH 13.8 % (11.6-14.6)
[2021-05-11] MEDS ORDERED: POLYMYXIN B SULFATE 500000 UNITS/VIAL ONE (12:29)
[2021-05-11] MEDS ORDERED: PIPERACILLIN/TAZOBACTAM 3.375GM/50ML PREMIX IV ONE (12:30)
[2021-05-11] MEDS ORDERED: PIPERACILLIN/TAZ 3.375G PREMIX 50 ML IV NR (12:30)
[2021-05-11] MEDS ORDERED: VANCOMYCIN 1 G PREMIX 200 ML IV SCH (12:30)
[2021-05-11 12:32] LABS: CHLORIDE 109 mEq/L (98-107)
[2021-05-11 12:35] LABS: PROTHROMBIN TIME 10.6 sec (9.6-11.0)
[2021-05-11] MEDS ORDERED: BACITRACIN 15GM TUBE TOP ONE (12:39)
[2021-05-11 12:56] LABS: CLARITY URINE CLEAR (CLEAR); COLOR URINE YELLOW (YELLOW); KETONES URINE NEGATIVE (NEGATIVE); LEUKOCYTE ESTERASE URINE NEGATIVE (NEGATIVE); NITRITE URINE NEGATIVE (NEGATIVE); OCCULT BLOOD URINE 2+ (NEGATIVE); PH URINE 5.5 (4.5-8.0); PROTEIN URINE NEGATIVE (NEGATIVE); SPECIFIC GRAVITY URINE 1.016 (1.005-1.030); UROBILINOGEN URINE 0.2 E.U./dL (0.2-1.0)
[2021-05-11 13:27] LABS: UCG SCREEN NEGATIVE
[2021-05-11] MEDS ORDERED: DEXAMETHASONE 4MG/ML 1ML VIAL ONE (14:47)
[2021-05-11] MEDS ORDERED: MIDAZOLAM HCL 2 MG/2 ML VIAL ONE (15:36)
[2021-05-11] MEDS ORDERED: PROPOFOL 200MG/20ML VIAL IV ONE (15:36)
[2021-05-11] MEDS ORDERED: FENTANYL CITRATE/PF 50MCG/ML 2ML VIAL ONE (15:37)
[2021-05-11] MEDS ORDERED: EPHEDRINE SULFATE 50MG/ML VIAL ONE (16:11)
[2021-05-11] MEDS ORDERED: HYDROMORPHONE HCL/PF 2MG/ML CPJ IV PRN (16:45)
[2021-05-11] MEDS ORDERED: CEFTRIAXONE 2 G in DEXTROSE 5% WATER 50 ML IV SCH (17:00)
[2021-05-11 18:50] LABS: CHLORIDE 107 mEq/L (98-107)
[2021-05-11] MEDS ORDERED: MAGNESIUM 2 G PREMIX 50 ML IV NR (20:45)
[2021-05-11 22:00] VITALS: BP 126/83
[2021-05-11 22:30] VITALS: BP 110/60
[2021-05-12] VITALS: BP 130/74
[2021-05-12] MEDS ORDERED: HYDROCODONE/ACETAMINOPHEN 5/325MG TABLET PO PRN
[2021-05-12] MEDS ORDERED: DEXTROSE 50% WATER 50ML SYRINGE IV PRN (00:30)
[2021-05-12] MEDS ORDERED: NALOXONE HCL 0.4MG/ML VIAL IV PRN (01:00)
[2021-05-12] MEDS ORDERED: VANCOMYCIN 750 MG PREMIX 150 ML IV SCH ×2 (02:00→17:00)
[2021-05-12 04:00] VITALS: BP 135/37
[2021-05-12] MEDS: MEROPENEM 500 MG in SODIUM CHLORIDE 0.9% 50 ML IV SCH ×2 (06:38→13:05)
[2021-05-12 06:43] LABS: BASOPHILS % 0.6 % (0.0-2.0); EOSINOPHILS % 3.3 % (0.0-5.0); HEMOGLOBIN. 11.6 g/dL (12.0-16.0); LYMPHOCYTES % 21.9 % (20.0-50.0); MEAN CORPUSCULAR HEMOGLOBIN 29.9 pg (28.0-32.0); MEAN CORPUSCULAR VOLUME 90.1 fL (81.0-99.0); MEAN PLATELET VOLUME 8.3 fl (7.4-10.4); MONOCYTES % 6.7 % (2.0-8.0); NEUTROPHILS % 67.5 % (40.0-76.0); PLATELET 186 x1000/uL (130-400); RED BLOOD CELL COUNT 3.88 mill/uL (4.2-5.4); RED CELL DISTRIBUTION WIDTH 13.9 % (11.6-14.6)
[2021-05-12 06:47] LABS: CHLORIDE 107 mEq/L (98-107)
[2021-05-12] MEDS ORDERED: OMEPRAZOLE 20MG CAPSULE EXTENDED RELEASE PO SCH (07:20)
[2021-05-12] MEDS: BLOOD SUGAR DIAGNOSTIC STRIP TEST SCH ×4 (07:45→20:25)
[2021-05-12 08:00] VITALS: BP 93/66
[2021-05-12] MEDS ORDERED: PREDNISONE 5MG TABLET PO SCH (09:00)
[2021-05-12] MEDS: TACROLIMUS 1MG CAPSULE PO SCH ×2 (09:00→20:29)
[2021-05-12] MEDS ORDERED: ASPIRIN 81MG TABLET PO SCH (09:00)
[2021-05-12] MEDS: DOCUSATE SODIUM 100MG CAPSULE PO SCH ×2 (09:00→17:00)
[2021-05-12] MEDS ORDERED: SULFAMETHOXAZOLE/TRIMETHOPRIM 400/80MG TAB PO SCH (09:00)
[2021-05-12] MEDS ORDERED: MULTIVITAMINS,THER W-MINERALS TABLET PO SCH (09:00)
[2021-05-12] MEDS ORDERED: CLOPIDOGREL 75MG TABLET PO SCH (09:00)
[2021-05-12] MEDS ORDERED: CEFTRIAXONE 2 G PREMIX 50 ML IV SCH (09:00)
[2021-05-12] MEDS: MYCOPHENOLATE MOFETIL 250MG CAPSULE PO SCH ×2 (09:02→20:29)
[2021-05-12] MEDS: INSULIN LISPRO 100 UNITS/ML SUBCUT SCH ×4 (09:08→20:37)
[2021-05-12 09:46] VITALS: BP_SYST 145; BP_SYST 93; BP_DIAS 50; BP_DIAS 66
[2021-05-12 20:49] VITALS: BP 104/72
[2021-05-12] MEDS ORDERED: ATORVASTATIN CALCIUM 20MG TABLET PO SCH (21:00)
== END 2021-05-12 22:04 | disposition home health service (06) | DRG 314 ==
LOC: ER 11:12 → 6EST 13:35 → EDBEDREQTM 14:08 → EDBEDREQ 14:08 → ENRESERV 19:32
PROVIDERS: ADMIT Internal Medicine; ATTEND Internal Medicine
PROC: 0Y6Y0Z0 Detachment at Left 5th Toe, Complete, Open Approach (ICD-10-PCS; principal; 2021-05-11)
DX: E11.52 Type 2 diabetes mellitus with diabetic peripheral angiopathy with gangrene (principal); I96 Gangrene, not elsewhere classified; E44.1 Mild protein-calorie malnutrition; M86.172 Other acute osteomyelitis, left ankle and foot; E11.621 Type 2 diabetes mellitus with foot ulcer; Z68.44 Body mass index [BMI] 60.0-69.9, adult; L97.529 Non-pressure chronic ulcer of other part of left foot with unspecified severity; E11.69 Type 2 diabetes mellitus with other specified complication; Z20.822 Contact with and (suspected) exposure to COVID-19; E87.8 Other disorders of electrolyte and fluid balance, not elsewhere classified; D72.819 Decreased white blood cell count, unspecified; I10 Essential (primary) hypertension; K21.9 Gastro-esophageal reflux disease without esophagitis; Z94.0 Kidney transplant status; Z98.891 History of uterine scar from previous surgery; Z87.440 Personal history of urinary (tract) infections; Z88.0 Allergy status to penicillin; Z79.899 Other long term (current) drug therapy; Z79.82 Long term (current) use of aspirin
CPT/HCPCS: 36415; 71045; 73630; 80048; 80053; 81003; 81025; 82962; 83036; 83735; 84484; 85025; 87070; 87075; 87077; 87186; 87426; 88305; 88311; 93005; 97161; 99285; J0696; J1100; J1815; J2185; J2250; J2543; J2704; J3010; J3370; J3475; J3490; J7060; J7507; J7512; J7517